=== PATIENT | male | born 1970 | race Caucasian/White ===

== ENCOUNTER 2018-10-05 14:54 | Inpatient (IN) | payer BC, OTHER ==
[~2018-10-05] VITALS: Ht 177.8 cm; Wt 97.5 kg
--- NOTE | ~2018-10-05 | HC ---
[facility] [place] [address] CONSULTATION Name: KEITH WESTON Room #: 215-P ADM IN M.R.#: [id number] Admission: 10/05/18 ������������������ Attend Phys: Jonathan Galarza MD Discharge: ������������������ Date of : 66 Report #: [id number] THIS REPORT FOR: //name// CC: Jonathan Clark REASON FOR CONSULTATION: Atrial fibrillation and shortness of breath. HISTORY OF PRESENT ILLNESS: The patient is a 48-year-old gentleman with a nonischemic cardiomyopathy, permanent atrial fibrillation, diabetes and COPD. He now presents with a 1- to 2-day history of nonproductive cough, orthopnea and increasing exertional breathlessness. He denies fevers or chills. Cough has been nonproductive. He does report that he "hears himself wheezing." No chest heaviness or pressure. When he originally presented with his cardiomyopathy, coronary angiography was undertaken and normal. He reports compliance with his medicines. CURRENT MEDICINES: Include apixaban 5 mg twice daily, diltiazem CD 180 mg daily, lisinopril 10 mg daily, torsemide 60 mg daily, potassium 20 mEq twice daily, glipizide 10 mg twice daily, Coreg 50 mg twice daily and trazodone. ALLERGIES: No known drug allergies. PAST MEDICAL HISTORY: His past history and medical records have been reviewed and include history of diabetes, COPD, permanent atrial fibrillation, and history of pulmonary embolism. 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 He is a 2-pack per day smoker for most of his adult life. FAMILY HISTORY: Unremarkable for premature coronary disease. REVIEW OF SYSTEMS: All systems negative except as that noted above. PHYSICAL EXAMINATION: GENERAL: This is a pleasant gentleman, who is mildly dyspneic. He has a prolonged expiratory phase. VITAL SIGNS: Blood pressure is 123/90, heart rate of 52 and irregular, he is afebrile, 5 feet 10 inches tall, 282 pounds. HEENT: There is neither xanthelasma, subcutaneous xanthomata, oral mucosal or digital cyanosis or kyphoscoliosis present. CHEST: Clear to auscultation and percussion. CARDIAC: An irregularly irregular rhythm with normal S1 and S2. ABDOMEN: Soft and nontender. EXTREMITIES: Without cyanosis, clubbing or edema. Radial pulses are 2+. NEUROLOGIC: He is alert with a nonfocal exam. [facility] [address] [place] [address] CONSULTATION Name: KEITH WESTON Room #: 215-P [facility] IN ..#: [id number] Admission: 10/05/18 ������������������ Attend Phys: Jonathan Galarza MD Discharge: ������������������ Date of : 66 Report #: [id number] LABORATORY DATA AND DIAGNOSTIC STUDIES: Sodium 138, potassium 3.2, creatinine 0.9. ProBNP of 992. Troponin of 0. White count 7.4, hemoglobin 15, hematocrit 47, platelet count 120. Chest x-ray demonstrates no acute process in the chest. CT scan of the chest demonstrates small nonocclusive pulmonary emboli. EKG, atrial fibrillation. IMPRESSION: 1. Atzrg-wl-swkxalm systolic heart failure; nonischemic cardiomyopathy, EF 35%. 2. Chronic obstructive pulmonary disease exacerbation; hypoxemic respiratory failure. 3. Permanent atrial fibrillation. 4. History of pulmonary embolism. 5. Hypertension. 6. Diabetes. 7. Presumed chronic obstructive pulmonary disease with a greater than 72-tkfq-czvv smoking history. 8. Hypercoagulable. RECOMMENDATIONS: 1. Resume rate controlling medicines. 2. Continued, probably lifelong anticoagulant therapy. 3. Diuresis. 4. Consider Pulmonary evaluation. ��������������������������������������������� ���������������������������������������� By: ��������������������������������������������� 0821 0837 Johnny Hansen MD, [facility] /nt
[~2018-10-05 14:54] MED LIST: ALDACTONE50 MG PO; AMIODARONE HCL400 MG PO; AMOX TR-K CLV1 EAC3 PO; APAP500 PO; AUGMENTIN 875875 MG PO; AZITHROMYCIN 2250 MG PO; BACTROBAN CREAM30 GM TOP; CARDIZEM CD 18180 M3 PO; CARVEDILOL25 MG PO; CHANTIX1 MG PO; CIPRO500 MG PO; CLOTRIMAZOLE 1%15 G1 TOP; COMBIVENT INH; DEMADEX 2020 MG/1 TA PO; DOXYCYCLINE 10100 MG PO; ELIQUIS5 MG PO; FLOMAX0.4 MG PO; FUROSEMIDE 80 M80 M1 PO; FUROSEMIDE20 MG/2 ML PO; GLIPIZIDE 5 MG T5 MG PO; GLUCOTROL5 MG PO; HYDROCODONE-APA1 TA1 PO; IBUPROFEN 200200 M1 PO; K-DUR 20 MEQ T20 MEQ PO; LANTUS100 UNIT/M SUBQ; LASIX 40 MG TAB40 M2 PO; LEVAQUIN 500 M500 M9 PO; LEVAQUIN 500 M500 MG PO; LEVEMIR SUBQ; LEVEMIR100 UNIT/1 SQ; LISINOPRIL10 MG PO; LISINOPRIL2.5 M1 PO; LO-DOSE ASPIRIN81 M1 PO; METFORMIN HCL500 MG PO; NICOTINE TRANSD14 M1 TOP; NICOTINE TRANSD21 M1; NOHOMEMEDICATIONS; NORCO 5-325 TA1 EACH PO; NORFLEX100 MG PO; NYAMYC15 GM TOP; OXYCODONE-ACET1 EACH PO; PERCOCET 10-321 EACH PO; PERCOCET 5-3251 EACH PO; PERCOCET PO; POTASSIUM20 PO; PRINIVIL20 MG PO; PROAIR HFA8.5 GM IH; PROMETHAZINE-C120 ML PO; TRAZODONE 150150 M1 PO; TYLENOL325 MG PO; VENTOLIN HFA 1818 GM INH; ZOFRAN ODT4 MG PO; ZPAK PO; ZYVOX600 MG PO
[2018-10-05 16:03] LABS: HEMATOCRIT 47.4 % (42.0-52.0); HEMOGLOBIN 16.1 gm/dL (14.0-18.0); MCH 27.1 pg (26.0-34.0); MCHC 33.9 g/dL (28.0-37.0); MCV 80.1 fL (80.0-100.0); PLATELET COUNT 139 thou/uL (150-400); RBC 5.92 mil/uL (4.50-6.00); RDW 14.4 % (10.5-14.5)
[2018-10-05 16:15] LABS: ANION GAP 7 mmol/L (7-16); BUN 26 mg/dL (7-18); CALCIUM 9.1 mg/dL (8.5-10.1); CHLORIDE 95 mmol/L (98-107); CO2 33 mmol/L (21-32); CREATININE 1.1 mg/dL (0.7-1.3); GLUCOSE 337 mg/dL (74-106); POTASSIUM 3.4 mmol/L (3.5-5.1); SODIUM 135 mmol/L (136-145)
[2018-10-05 16:19] VITALS: BP 138/73
[2018-10-05 16:24] LABS: TROPONIN-I <0.06 ng/mL (<0.06)
[2018-10-05 16:52] LABS: ABSOLUTE NEUTROPHILS 6.3 thou/uL (1.4-8.2); ANISOCYTOSIS 1+
[2018-10-05 17:38] LABS: BE(vivo) 3.7 mmol/L (-2 to +3); HCO3 28.2 mmol/L (22.0-26.0); PCO2 41.9 mmHg (35.0-45.0); pH 7.446 (7.360-7.450); sO2 88.8 % (92.0-98.0)
[2018-10-05 17:39] LABS: PO2 53.1 mmHg (80.0-100.0)
[2018-10-05 19:23] LABS: BE(vivo) 5.3 mmol/L (-2 to +3); PCO2 43.8 mmHg (35.0-45.0); pH 7.454 (7.360-7.450); sO2 87.6 % (92.0-98.0)
--- NOTE | 2018-10-05 19:24 | NUR ---
CRITICAL BLOOD GAS RECEIVED AT THIS TIME [PO2 50.9]. ERIKA CALLED AND INFORMED. ADVISED THAT PT WOULD NEED CLOSER INSTRUCTION TO REMAIN COMPLIANT WITH O2 NEEDED, UP TO AND INCLUDING PHYSICAL AND CHEMICAL RESTRAINTS NEEDED IF PT WERE TO REMAIN FULL CODE. ERIKA ADVISED THAT SITUATION ESCALATES WITH PT'S NON-COMPLIANCE TO OXYGEN, TO CALL BACK AND SHE WILL GIVE ORDERS NECESSARY. NC INCREASED TO 4LPM O2 AT THIS TIME
[2018-10-05 19:25] LABS: PO2 50.9 mmHg (80.0-100.0)
[2018-10-05] MEDS ORDERED: NORCO 7.5-3251 EACH PO (20:28)
[2018-10-06] VITALS: BP 100/77
[2018-10-06 00:30] VITALS: BP 115/65
[2018-10-06 03:25] VITALS: BP 136/74
--- NOTE | 2018-10-06 05:11 | NUR ---
PT ADMITTED TO ROOM 215 FROM ER, VSS O2 AT 2L/NC WITH SAT AT 93%, NPC, AFIB WITH LAT LOW 100'S TO 130'S-150'S WHEN PT UP COUGHING OR USING URINAL, VOIDING LRG AMOUNT OF DARK YELLOW URINE AFTER IV LASIX GIVEN IN ER, REFUSING SCD'S AFTER EDUCATION GIVEN, WILL CON'T TO MONITOR PER PPOC.
[2018-10-06 05:57] LABS: HEMATOCRIT 47.6 % (42.0-52.0); HEMOGLOBIN 15.9 gm/dL (14.0-18.0); MCH 26.9 pg (26.0-34.0); MCHC 33.3 g/dL (28.0-37.0); MCV 80.8 fL (80.0-100.0); RBC 5.89 mil/uL (4.50-6.00); RDW 14.4 % (10.5-14.5); WBC 7.4 thou/uL (4.0-11.0)
[2018-10-06 06:20] LABS: CALCIUM 8.6 mg/dL (8.5-10.1); CREATININE 0.9 mg/dL (0.7-1.3); POTASSIUM 3.2 mmol/L (3.5-5.1)
[2018-10-06 07:56] VITALS: BP 123/96
--- NOTE | 2018-10-06 09:18 | EKG ---
[address] [employer] [address] ELECTROCARDIOGRAM REPORT Name: KEITH WESTON Room #: 215-P ADM IN M.R.#: [id number] ������������������ Admission: 10/05/18 ������������������ Attend Phys: Jonathan Galarza MD Discharge: ������������������ Date of : 66 Report #: [id number] ����������������������������������������������������������������� [id number] THIS REPORT FOR: //name// [facility] ED Test Date: 2018-10-05 Test Time: 15:09:56 Pat Name: KEITH WESTON Department: Room: 215 Gender: M Manager Strategic Development: Wiley Garcia : 1970 Requested By: Blake Veloz Order Number: [id number] MD: Johnny Hansen Measurements Intervals [place] Rate: 120 P: [place]: QRS: -51 QRSD: 127 T: 99 QT: 326 QTc: 461 Interpretive Statements Atrial fibrillation Left bundle branch block Compared to ECG 11/18/2017 11:21:47 No significant changes Electronically Signed On 10-06-2018 9:18:18 CDT by Johnny Hansen [email or web address] ��������������������������������������������� <ELECTRONICALLY SIGNED> ���������������������������������������� By: Johnny Hansen MD, [facility] ��������������������������������������������� 10/06/1818 1509 1509 Johnny Hansen MD, FAC /EPI
--- NOTE | 2018-10-06 15:18 | 2DMMODE ---
[facility] [address] [address] 2 D/M-MODE ECHOCARDIOGRAM Name: KEITH WESTON Room #: 215-P ADM IN M.R.#: [id number] ������������� Admission: 10/05/18 ������������� Attend Phys: Jonathan Galarza MD Discharge: ��� ������������� ��� Date of : 66 Date of Service: 10/06/18 1518 �� Report #: [id number] �������� ��������������������������������������������[id number] THIS REPORT FOR: //name// APPROVED REPORT Study performed: 10/06/2018 12:57:13 EXAM: Comprehensive 2D, Doppler, and color-flow Echocardiogram Patient Location: Echo lab Room #: 215 Status: routine BSA: 2.16 HR: 101 bpm BP: 123/96 mmHg Rhythm: Atrial Fibrillation Other Information Study Quality: Good Indications Congestive Heart Failure COPD Diabetes Atrial Fibrillation Cardiomyopathy Hypertension/HDD Echo Enhancing Agent Indication: Endocardial border delineation Agent(s) / Amount(s) Used: Optison 6 cc Left Ventricle Left ventricle is dilated. There is severe global hypokinesis of the left ventricle. Mild to moderate concentric left ventricular hypertrophy. Left ventricular ejection fraction is severely decreased. LVEF is 25%. This study is not technically sufficient to allow evaluation of the LV diastolic function due to atrial fibrillation. Right Ventricle Right ventricle is dilated. Right ventricle is hypokinetic. Atria Left atrium is dilated. Right atrium is dilated. [facility] [address] [place] [address] 2 D/M-MODE ECHOCARDIOGRAM Name: KEITH WESTON Room #: 215-P ADM IN M.R.#: [id number] ������������� Admission: 10/05/18 ������������� Attend Phys: Jonathan Galarza MD Discharge: ��� ������������� ��� Date of : 66 Date of Service: 10/06/18 1518 �� Report #: [id number] �������� ��������������������������������������������[id number] Aortic Valve The aortic valve is normal in structure. No aortic regurgitation is present. There is no aortic valvular stenosis. Mitral Valve The mitral valve is normal in structure. Mild mitral regurgitation. No evidence of mitral valve stenosis. Tricuspid Valve The tricuspid valve is normal in structure. There is mild tricuspid regurgitation. Estimated PAP 40 mmHg. There is moderate pulmonary hypertension. Pulmonic Valve The pulmonary valve is normal in structure. There is no pulmonic valvular regurgitation. Great Vessels The aortic root is normal in size. The inferior vena cava is dilated with no inspiratory collapse. Pericardium There is no pericardial effusion. <Conclusion> Left ventricular ejection fraction is severely decreased. LVEF is 25%. There is severe global hypokinesis of the left ventricle. Both atria are dilated. The aortic valve is normal in structure. No aortic regurgitation or stenosis The mitral valve is normal in structure. Mild mitral regurgitation. There is mild tricuspid regurgitation. Estimated pulmonary artery pressure of 40 mmHg. There is no pericardial effusion. ��������������������������������������������� <ELECTRONICALLY SIGNED> ���������������������������������������� By: Johnny Hansen MD, [facility] ��������������������������������������������� 10/06/18 1518 1518 151 Johnny Hansen MD, [facility] /INF
[2018-10-06 15:20] VITALS: BP 110/62
[2018-10-06 19:56] VITALS: BP 79/47
[2018-10-07 04:32] VITALS: BP 94/75
[2018-10-07 05:22] LABS: CALCIUM 9.3 mg/dL (8.5-10.1)
[2018-10-07 05:23] LABS: POTASSIUM 4.2 mmol/L (3.5-5.1)
--- NOTE | 2018-10-07 06:52 | NUR ---
PATIENTS CARE WAS ASSUMED AT SHIFT CHANGE. PATIENT WAS ASSESSED AND MEDS WERE PASSED. PATIENT WAS UPSET ABOUT MEDICATION DUE AT MIDNIGHT. PATIENT WAS ABLE TO GO BACK TO SLEEP. HOURLY ROUNDING WAS DONE. BED IS IN A LOW AND LOCKED POSITION
[2018-10-07 07:31] VITALS: BP 112/75
[2018-10-07 11:53] VITALS: BP 88/63
[2018-10-07 15:43] VITALS: BP 98/73
[2018-10-07 16:24] VITALS: BP 133/74
--- NOTE | 2018-10-07 18:22 | NUR ---
ASSUMED CARE AT SHIFT CHANGE, ALERT AND ORIENTED X4. VSS AND AFEBRILE. BG REMAINS ELEVATED [phone], MEDICATED PRESCRIPED. PATIENT SPENT MOST OF THE DAY SLEEP. SLOWLY PROGRESSING TOWARDS GOALS AND WILL CONTINUE WITH POC.
[2018-10-07 19:49] VITALS: BP 96/62
[2018-10-08 03:33] LABS: HEMATOCRIT 46.7 % (42.0-52.0); HEMOGLOBIN 15.4 gm/dL (14.0-18.0); MCH 26.8 pg (26.0-34.0); MCHC 32.9 g/dL (28.0-37.0); MCV 81.4 fL (80.0-100.0); RBC 5.74 mil/uL (4.50-6.00); RDW 14.6 % (10.5-14.5); WBC 16.7 thou/uL (4.0-11.0)
[2018-10-08 03:43] LABS: CALCIUM 8.7 mg/dL (8.5-10.1)
--- NOTE | 2018-10-08 04:21 | NUR ---
RECEIVED PT'S CARE 1909; PT. ON BED; AOX4; NO NC ON; ST. "I DO NOT NEED IT"; VS O2 SAT 94%; DURING ASSESSMENT C/O HIP PAIN; PRN PAIN MEDICATION NOT DUE; ST. UNDERSTANDING; O2 SAT 92%; REFUSED 02; REFUSED SUCKS; REQUESTED PRN SLEEP MEDICATION AT 2100; EDUCATED ABOUT CALLING AT 2100 OR WHEN READY; ST. UNDERSTANDING; DURING ROUNDING PT. SLEEPING; AROUND 2300 SLEEP INTERRUPTED DUE TO SCHEDULE MEDICATION; REQUESTED PRN SLEEP MEDICATION; MEDICATION GIVEN; ABLE TO REST DURING THE NIGHT WITH EYES CLOSE; MONITORING; ASSESSMENT CHARGED; FOLLOWING POC; WILL PASS ON REPORT.
[2018-10-08 06:00] VITALS: BP 99/69
[2018-10-08 06:06] VITALS: BP 106/71
[2018-10-08 07:51] VITALS: BP 107/79
--- NOTE | 2018-10-08 07:55 | EKG ---
[address] [place] [address] ELECTROCARDIOGRAM REPORT Name: KEITH WESTON Room #: 215-P ADM IN M.R.#: [id number] ������������������ Admission: 10/05/18 ������������������ Attend Phys: Jonathan Galarza MD Discharge: ������������������ Date of : 66 Report #: [id number] ����������������������������������������������������������������� [id number] THIS REPORT FOR: //name// [facility] Test Date: 2018-10-07 Test Time: 07:37:04 Pat Name: KEITH WESTON Department: Room: 215 P Gender: M Anesthesiologist And Critical Care: ALLEN : 1970 Requested By: Johnny Hansen Order Number: [id number] MD: Johnny Hansen Measurements Intervals [place] Rate: 102 P: [place]: QRS: -39 QRSD: 122 T: 99 QT: 363 QTc: 473 Interpretive Statements Atrial fibrillation Left bundle branch block Compared to ECG 10/05/2018 15:09:56 No significant changes Electronically Signed On 10-08-2018 7:55:16 CDT by Johnny Hansen [email or web address] ��������������������������������������������� <ELECTRONICALLY SIGNED> ���������������������������������������� By: Johnny Hansen MD, [facility] ��������������������������������������������� 10/08/18 0755 D: [id number] Johnny Hansen MD, FACC /EPI
[2018-10-08] MEDS ORDERED: COREG25 MG PO (11:46)
[2018-10-08] MEDS ORDERED: TORSEMIDE20 MG PO (11:48)
[2018-10-08] MEDS ORDERED: PREDNISONE 10 M10 MG PO (11:49)
[2018-10-08 11:52] VITALS: BP 125/49
--- NOTE | 2018-10-08 15:58 | NUR ---
ASSUMED CARE AT SHIFT CHANGE, ALERT AND ORIENTED X4. AFIB ON THE MONITOR AND VSS. DISCHARGE AND MEDICATION INSTRUCTIONS GIVEN TO PATIENT. S/B DR SCHAEFFER, APPIONTMENT INFORMAIOTN AND MEDICATION SAMPLES GIVEN. PATIENT ANY CP OR DISCOMFORT.
[2018-10-08 16:46] VITALS: BP 118/73
[2018-10-08 17:26] VITALS: BP 118/73
== END 2018-10-08 17:44 | disposition home or self-care (01) | DRG 291 ==
LOC: ER 14:54 → EROBS 17:33 → 2N 17:33
PROVIDERS: Emergency Medicine; Internal Medicine; ADMIT Hospitalist
DX: I11.0 Hypertensive heart disease with heart failure (principal); I26.99 Other pulmonary embolism without acute cor pulmonale; J96.01 Acute respiratory failure with hypoxia; J44.1 Chronic obstructive pulmonary disease with (acute) exacerbation; D68.59 Other primary thrombophilia; I50.23 Acute on chronic systolic (congestive) heart failure; I42.8 Other cardiomyopathies; G47.33 Obstructive sleep apnea (adult) (pediatric); E66.01 Morbid (severe) obesity due to excess calories; I48.2 Chronic atrial fibrillation; E78.5 Hyperlipidemia, unspecified; E11.9 Type 2 diabetes mellitus without complications; F17.210 Nicotine dependence, cigarettes, uncomplicated; Z79.01 Long term (current) use of anticoagulants; Z79.4 Long term (current) use of insulin; Z79.899 Other long term (current) drug therapy; Z68.30 Body mass index [BMI] 30.0-30.9, adult; Z83.3 Family history of diabetes mellitus; Z80.9 Family history of malignant neoplasm, unspecified
CPT/HCPCS: 10081

== ENCOUNTER 2019-02-02 18:17 | Inpatient (IN) | payer OTHER ==
[~2019-02-02] VITALS: Ht 177.8 cm; Wt 127.5 kg
[~2019-02-02 18:17] MED LIST changes: +COREG25 MG PO; +NORCO 7.5-3251 EACH PO; +PREDNISONE 10 M10 MG PO; +TORSEMIDE20 MG PO
[2019-02-02 18:46] LABS: ABSOLUTE NEUTROPHILS 9.8 thou/uL (1.4-8.2); BASOPHILS 0.5 % (0.0-2.0); EOSINOPHILS 0.9 % (0.0-3.0); HEMATOCRIT 50.2 % (42.0-52.0); HEMOGLOBIN 16.1 gm/dL (14.0-18.0); LYMPHOCYTES 15.4 % (24.0-44.0); MCH 26.7 pg (26.0-34.0); MCV 83.4 fL (80.0-100.0); MONOCYTES 8.6 % (1.0-8.0); PLATELET COUNT 235 thou/uL (150-400); POLYS 74.6 % (36.0-66.0); RBC 6.02 mil/uL (4.50-6.00); WBC 13.1 thou/uL (4.0-11.0)
[2019-02-02 18:54] LABS: ANION GAP 9 mmol/L (7-16); BUN 31 mg/dL (7-18); CALCIUM 9.8 mg/dL (8.5-10.1); CHLORIDE 84 mmol/L (98-107); CO2 29 mmol/L (21-32); CREATININE 1.4 mg/dL (0.7-1.3); POTASSIUM 4.1 mmol/L (3.5-5.1); SODIUM 122 mmol/L (136-145)
[2019-02-02 18:59] LABS: APTT 25.7 Seconds (24.5-32.8); INR 1.1; PROTIME 11.7 Seconds (9.3-11.4)
[2019-02-02 19:00] LABS: TROPONIN-I <0.06 ng/mL (<0.06)
[2019-02-02 19:08] LABS: GLUCOSE 854 mg/dL (74-106)
[2019-02-03] VITALS (8 sets, daily range): BP systolic 103–135; BP diastolic 53–74
[2019-02-03 00:09] LABS: CHOLESTEROL 168 mg/dL (<200); HDL CHOLESTEROL 18 mg/dL (>40); LDL CHOLESTEROL 96 mg/dL (<100); TC:HDL 9.3 Ratio (Not establshd); TRIGLYCERIDE 272 mg/dL (<150); VLDL 54 mg/dL (<40)
[2019-02-03 00:21] LABS: SERUM ASSESSMENT Clear
[2019-02-03 05:36] LABS: HEMATOCRIT 49.7 % (42.0-52.0); MCH 26.2 pg (26.0-34.0); MCHC 32.1 g/dL (28.0-37.0); MCV 81.5 fL (80.0-100.0); RBC 6.09 mil/uL (4.50-6.00); RDW 15.1 % (10.5-14.5); WBC 14.6 thou/uL (4.0-11.0)
[2019-02-03 05:48] LABS: CALCIUM 9.2 mg/dL (8.5-10.1); CREATININE 1.1 mg/dL (0.7-1.3); POTASSIUM 3.7 mmol/L (3.5-5.1)
[2019-02-03 05:50] LABS: CALCIUM 9.1 mg/dL (8.5-10.1); CREATININE 1.1 mg/dL (0.7-1.3); MAGNESIUM 2.3 mg/dL (1.8-2.4); POTASSIUM 3.9 mmol/L (3.5-5.1)
--- NOTE | 2019-02-03 08:10 | NUR ---
ASSESSMENTS CHARTED, MEDS GIVEN CHARTED. PATIENT ARRIVED FROM ED AROUND 1:14 IN AM WITH SHORTNESS OF BREATH, AFIB ON CARIZEM DRIP AND ELEVATED GLUCOSE ON INSULIN DRIP. PATIENT ANXIOUS, ADMITTED IN COMPUTER. PATIENT STATES HE DOES NOT GO TO MANY DOCTORS APPOINTMENTS BECAUSE HE CANT MISS WORK. HAS AN EF OF 20% SINCE 2013 BUT NEVER WENT TO THE DOCTORS APPOINTMENT TO GET A PACEMAKER. NEVER CHECKS HIS BLOOD SUGAR, JUST TAKES A SET DOSE OF INSULIN PER DAY. IS A 2 PPD SMOKER WHO REFUSES TO QUIT, REFUSES BREATHING TREATMENTS, BLAMES SINUS INFECTIONS ON BREATHING TREATMENTS. 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 PATIENT NOT READY TO LEARN.
--- NOTE | 2019-02-03 08:20 | NUR ---
PT REFUSES ALL FALL RISK INTERVENTION.
--- NOTE | 2019-02-03 10:31 | NUR ---
SPOKE WITH DR. KOHLER AND INSTRUCTED TO DISCONTINUE INSULIN GTT AND HE WILL RESUME PT'S HOME MEDS.
--- NOTE | 2019-02-03 13:53 | EKG ---
[address] [email or web address] [address] ELECTROCARDIOGRAM REPORT Name: MARYMARKKEITH Room #: 359-P ADM IN M.R.#: [id number] Admission: 02/02/19 Attend Phys: Temo Dickson Discharge: Date of : 66 Report #: [id number] THIS REPORT FOR: //name// [facility] ED Test Date: 2019-02-02 Test Time: 18:30:13 Pat Name: KEITH WESTON Department: Room: 359 Gender: M Director Data Analytics: JNGUM : 1970 Requested By: Thierry Blancas Order Number: [id number] MD: Vinayak Tinajero Measurements Intervals [place] Rate: 116 P: MD: QRS: -58 QRSD: 123 T: 87 QT: 339 QTc: 471 Interpretive Statements Atrial fibrillation Left bundle branch block Compared to ECG 10/07/2018 07:37:04 No significant changes Electronically Signed On 02-03-2019 13:53:45 CDT by Vinayak Tinajero [email or web address] <ELECTRONICALLY SIGNED> By: Vinayak Tinajero MD 02/03/19 1353 29 29 Vinayak Tinajero MD /[facility]
--- NOTE | 2019-02-03 14:41 | NUR ---
FAXED FACE SHEET TO [facility] TO HELP WITH MEDICAID APPLICATION RECEIVED CONFIRAMATION.
[2019-02-04 00:07] LABS: GLYCOHEMOGLOBIN (HGB A1C) 12.9 % (4.8-5.6)
[2019-02-04 04:00] VITALS: BP 121/84
--- NOTE | 2019-02-04 04:07 | NUR ---
PATIENT IS ALERT AND ORIENTED PATIENT IS UP AD HUNTER DUE TO REFUSEING ALARMS. PATIENT IS ON ROOM AIR. PATIENTS BLOOD GLUCOSE IN ELEVATED FOLLOWING ORDERS FROM [facility] CANDELARIA. JEREMY KNOWS TO CALL WITH ANY SIGNS OF HYPOGLYCEMIA. PATIENT HAS HX OF MRSA 3-4 YEARS AGO. PATIENT HAS NOT HAD ANY SNACKS THIS SHIFT. PATIENT IS A FIB ON TELE. PATIENT IS RESTING COMFORTABLY IN BED. WCM. PATIENT IS NOT PROGRESSING TO GOALS.
[2019-02-04 06:08] LABS: CALCIUM 8.8 mg/dL (8.5-10.1); CREATININE 0.8 mg/dL (0.7-1.3); POTASSIUM 4.2 mmol/L (3.5-5.1)
[2019-02-04 07:32] VITALS: BP 120/65
[2019-02-04 11:32] VITALS: BP 114/65
--- NOTE | 2019-02-04 13:37 | NUR ---
Assess due to pt with uncontrolled diabetes, RD consult received. Hx DM, CHF, obesity, copd. Admit with SOB, afib, and chronic sinus infection. BG 300-500 with A1C of 12.9. Triglycerides elevated at 272. Class III obesity, BMI 40.3. Wt loss nearly 40 lb from usual if current wt 281 lb is correct. Pt states not really trying to lose wt. Has symptoms of increased thirst, dry mouth and frequent urination. Denies poor compliance with diet but also would not give much detailed information on what he is eating or portions despite frequent prompting. Denied need for nutrition information, states "I have all that all home" Was not aware of medication for treatment of high triglycerides. Did listen to general information and suggestions and RD provided option for outpatient dietitian services if pt desires. Insulin being adjusted by physician for improved BG control. Low nutrition risk
--- NOTE | 2019-02-04 13:44 | NUR ---
INITIAL ASSESSMENT: OBEY reviewed chart and spoke with nursing and attending physician. Pt was admitted from home due to hyperglycemia. Pt listed as patient pay and face sheet was faxed to [facility] yesterday by funeral planner. Discharge home is anticipated for tomorrow. OBEY met with pt at bedside. Introduced role of SW. Pt is alert/orientated x 4. Pt reports he lives at home with his . Prior to admission, pt was independent with ADLs. No use of DME. No hx of services or SNF/Rehab placement. Pt's PCP is Dr. Clark. Pt needs an outpatient sleep study and cardiology workup for a pacemaker. Pt states he will coordinate appointments after he is discharged. Pt states his insurance termed on 12/13. Pt is unsure if his insurance has an option for [employer] benefits. OBEY is following to assist as needed with discharge planning.
[2019-02-04 14:45] VITALS: BP 100/72
--- NOTE | 2019-02-04 18:46 | NUR ---
ASSUMED CARE OF PATIENT AT 0700. PATIENT VSS WITH CLIMBING BLOOD SUGARS. NURSE HAS INCREASED SLIDING SCALE FROM LOW TO MODERATE DURING SHIFT. PATIENT ALERT AND ORIENTED X4. VSS. UP AD HUNTER.
[2019-02-04 19:40] VITALS: BP 105/66
[2019-02-05] MEDS ORDERED: GLUCOPHAGE500 MG PO (01:37)
[2019-02-05 04:10] VITALS: BP 103/63
--- NOTE | 2019-02-05 06:22 | NUR ---
ASSUMED CARE AT 1900. START OF SHIFT PT HAD "HIGH" GLUCOSE READING, OBTAINED STAT LAB CHECK WITH RESULT OF 474; SPOKE WITH BAIL BONDSMAN LEWIS, GAVE 23 UNITS LISPRO PER SLIDING SCALE AND 40 UNITS SCHEDULE LANTUS AT 1999, WITH A RECHECK AT 2200. 0 RESULT WAS 384, ORDERED TO GIVE ANOTHER 23 UNITS LISPRO AND RECHECK AT MIDNIGHT. MIDNIGHT BS WAS 350, NO NEW INSULIN ORDERED, BUT CHECK AT 0400; BS WAS 322, GAVE ANOTHER 20 UNITS PER SLIDING SCALE WITH RECHECK ORDERED FOR 0700. PT DENIES PAIN OR NAUSEA. DENIES SOB, BUT C/O HEAVY SINUS DRAINAGE AND CONGESTION; PT ASKED WHETHER A CT HAD BEEN ORDERED; PER DR. ENG'S NOTE, PT COULD HAVE A CT OUT-PATIENT OR IN-PATIENT IF HE IS REMAINING IN THE HOSPITAL. HAS BEEN IN AFIB WITH HR 80-90'S. IV ABX GIVEN OVERNIGHT. NO OTHER CONCERNS, WILL CONTINUE TO MONITOR.
[2019-02-05 07:26] VITALS: BP 145/108
[2019-02-05] MEDS ORDERED: HUMALOG100 UNIT/1 SUBQ (09:47)
[2019-02-05] MEDS ORDERED: LANTUS SUBQ (09:47)
[2019-02-05] MEDS ORDERED: BACTRIM DS TAB1 EAC1 PO (09:48)
[2019-02-05 10:59] VITALS: BP 116/94
[2019-02-05 13:41] VITALS: BP 116/94
--- NOTE | 2019-02-05 15:08 | NUR ---
SPOKE WITH PT REGARDING DIABETIC MANAGEMENT, STATES HE IS NOT TESTING AT ALL AT HOME BUT HE DOES HAVE A METER. INSTRUCTED TO TALK TO DR. SINGLETON ABOUT HOW OFTEN HE SHOULD TEST. PT VERBALIZED UNDERSTANDING.
--- NOTE | 2019-02-05 15:59 | NUR ---
DISCHARGE NOTE: SW reviewed chart and spoke with nursing and attending physician. Pt is medically stable for discharge home today. Pt was discharged prior to SW visit. [employer] screened pt for Medicaid/financial assistance. Case closed.
--- NOTE | 2019-02-13 08:42 | HC ---
[facility] [place] [address] CONSULTATION Name: JOSEKEITH AGUILLON Room #: 359-P [facility] IN M.R.#: [id number] Admission: 02/02/19 Attend Phys: Temo Dickson Discharge: 02/05/19 Date of : 66 Report #: [id number] THIS REPORT FOR: //name// CC: Temo Clark DATE OF SERVICE: 02/03/2019 REASON FOR CONSULTATION: Sinusitis. HISTORY OF PRESENT ILLNESS: The patient is a 48-year-old gentleman, well known to us from previous evaluation in the office clinic setting. He was originally seen on 12/23/2018, at which time he reported a 2-month history of nasal congestion, green yellowish nasal drainage, sour taste in the mouth, postnasal discharge and a cough since he had been hospitalized for CHF. Treatment at that time had been 10 days of cefdinir over 6 weeks ago. Examination at that time demonstrated a more significant right than left nasal purulence and inflammation. At that time, I had recommended he start a regimen of 3 weeks of cefdinir along with some nasal hygiene. He returned on 01/28/2019 and had noted that he continued to have the same sensation despite 3 weeks of therapy. However, it should be noted that it was 01/28/2019 visit, he had significant dyspnea in the examination room and I started him on oral antibiotics and steroids, but sent over to see Dr. Clark at that time. He was hospitalized on Saturday from the Emergency Room with increasing heart rate/rapid ventricular response and dyspnea along with a history of hemoptysis on Saturday and Saturday of this last week. Today, the patient reports no hemoptysis. He denies any dyspnea. He continues to note some generalized nasal congestion and sinus congestion and pressure. 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 MEDICATIONS: Noted on the hospitalization chart. PAST MEDICAL AND SURGICAL HISTORY: Extensive for COPD, diabetes, congestive heart failure, essential hypertension. PHYSICAL EXAMINATION: He was examined in hospital bed. He was relaxed, conversant, did not appear in any distress. Inspection of the oral cavity and oropharynx revealed no abnormalities. There was no evidence of any posterior nasal rhinorrhea. Internal nares examination reveals no evidence of any inflammation on the left nasal passageway. There is moderate yellowish green crusting within the right nasal passageway. No obvious purulence was draining out of the middle meatus, however. Examination of the ears and palpation of the neck was otherwise unremarkable. ASSESSMENT: History of probable chronic rhinosinusitis. RECOMMENDATIONS: [address] [address] CONSULTATION Name: KEITH WESTON Room #: 359-P [facility] IN M.R.#: [id number] Admission: 02/02/19 Attend Phys: Temo Dickson Discharge: 02/05/19 Date of : 66 Report #: [id number] 1. After discussing his care with Dr. Clark as most likely he will be discharged in the next 24 hours. I would recommend he finish his oral antibiotic therapy and we will obtain an outpatient CT scan of his sinuses this following week of 02/09/2019. However, the patient is going to be hospitalized for an extended period of time, we can go ahead and obtain a CT scan as an inpatient at this same time frame. Thank you for allowing us to participate in his care. <ELECTRONICALLY SIGNED> By: Kishan Alfredo MD 02/13/19 0842 1324 1445 Kishan Alfredo MD /nt
== END 2019-02-05 14:08 | disposition home or self-care (01) | DRG 309 ==
LOC: ER 18:17 → 3W 20:53 → EROBS 20:53 → 3W 02-03 01:22 → ENTRNSPT 02-05 13:50 → EDTRNSPTSTS 02-05 14:03 → 3W 02-05 14:08
PROVIDERS: Emergency Medicine; Nurse Practitioner Acute Care; ADMIT Hospitalist
DX: I48.91 Unspecified atrial fibrillation (principal); R04.2 Hemoptysis; N17.9 Acute kidney failure, unspecified; E87.1 Hypo-osmolality and hyponatremia; J96.10 Chronic respiratory failure, unspecified whether with hypoxia or hypercapnia; I50.22 Chronic systolic (congestive) heart failure; I42.9 Cardiomyopathy, unspecified; Z91.19 Patient's noncompliance with other medical treatment and regimen; I11.0 Hypertensive heart disease with heart failure; J44.9 Chronic obstructive pulmonary disease, unspecified; J32.9 Chronic sinusitis, unspecified; E11.65 Type 2 diabetes mellitus with hyperglycemia; Z86.711 Personal history of pulmonary embolism; Z79.899 Other long term (current) drug therapy
CPT/HCPCS: 10879

== ENCOUNTER 2019-02-17 13:19 | Inpatient (IN) | payer BC, OTHER ==
[~2019-02-17] VITALS: Ht 177.8 cm; Wt 138.0 kg
[~2019-02-17 13:19] MED LIST changes: +BACTRIM DS TAB1 EAC1 PO; +GLUCOPHAGE500 MG PO; +HUMALOG100 UNIT/1 SUBQ; +LANTUS SUBQ
[2019-02-17 13:52] VITALS: BP 107/78
[2019-02-17 14:40] LABS: ABSOLUTE NEUTROPHILS 7.4 thou/uL (1.4-8.2); EOSINOPHILS 1.6 % (0.0-3.0); HEMATOCRIT 45.1 % (42.0-52.0); HEMOGLOBIN 14.6 gm/dL (14.0-18.0); LYMPHOCYTES 23.2 % (24.0-44.0); MCH 26.6 pg (26.0-34.0); MCHC 32.3 g/dL (28.0-37.0); MCV 82.3 fL (80.0-100.0); MONOCYTES 6.1 % (1.0-8.0); PLATELET COUNT 130 thou/uL (150-400); POLYS 68.1 % (36.0-66.0); RBC 5.48 mil/uL (4.50-6.00); RDW 15.7 % (10.5-14.5); WBC 10.8 thou/uL (4.0-11.0)
[2019-02-17 14:46] LABS: CALCIUM 9.7 mg/dL (8.5-10.1); CREATININE 0.6 mg/dL (0.7-1.3); MAGNESIUM 1.7 mg/dL (1.8-2.4); POTASSIUM 3.9 mmol/L (3.5-5.1)
--- NOTE | 2019-02-17 16:55 | NUR ---
PATIENT ARRIVED FROM DR CROOK OFFICE AT 1500, ALERT AND ORIENTED X4. ADMISSION COMPLETED. NEW POC ESTABBLISHED, AND WILL CONTIUE TO MONITOR PATIENT.
--- NOTE | 2019-02-17 17:09 | EKG ---
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 : 1970 Requested By: Zelda Rodrigues Order Number: [id number] MD: Johnny Hansne Measurements Intervals [place] Rate: 114 P: [place]: QRS: -39 QRSD: 118 T: 111 QT: 348 QTc: 480 Interpretive Statements Atrial fibrillation Nonspecific IVCD with LAD Low voltage, extremity leads Poor R wave progression Compared to ECG 02/02/2019 18:30:13 No significant change was found Electronically Signed On 02-17-2019 17:09:30 BOXER OPERATOR by Johnny Hansen [email or web address] <ELECTRONICALLY SIGNED> By: Johnny Hansen MD, [facility] 02/17/19 1709 1423 142 Johnny Hansen MD, [facility] /EPI
[2019-02-17 17:21] VITALS: BP 114/75
[2019-02-17 20:37] VITALS: BP 130/90
[2019-02-18 00:24] VITALS: BP 148/82
--- NOTE | 2019-02-18 05:11 | NUR ---
ASSUMED OT CARE AT 1900. VSS. PT A&0X4. PT STILL IN AFIB AND TACHY WITH ACTIVITY IN THE 130S, BUT IN 110s WITH SLEEP. PT SLEPT WELL ALL NIGHT, COMPLAINED OF TOOTH PAIN, TYLENOL GIVEN. PT IS STABLE, WILL CONTINUE TO MONITORPER POC
[2019-02-18 05:16] VITALS: BP 133/75
[2019-02-18 07:10] VITALS: BP 108/75
--- NOTE | 2019-02-18 08:15 | HC ---
[facility] [place] [address] CONSULTATION Name: KEITH WESTON Room #: 218-P ADM IN M.R.#: [id number] Admission: 02/17/19 Attend Phys: Kain Reyes MD Discharge: Date of : 66 Report #: [id number] THIS REPORT FOR: //name// CC: Kain Clark DATE OF SERVICE: 02/17/2019 ENDOCRINE CONSULTATION NOTE CONSULTING PHYSICIAN: Kain Reyes MD REASON FOR CONSULTATION: Uncontrolled type 2 diabetes mellitus. HISTORY OF PRESENT ILLNESS: This is a 48-year-old male patient whose medical background is significant for uncontrolled type 2 diabetes mellitus as per his report as well as progressive issues with congestive heart failure, atrial fibrillation, hyperlipidemia and hypertension. The patient was admitted earlier today following difficulties with progressive shortness of breath, dyspnea on exertion, and orthopnea as well as significant fluid retention with a weight gain of 30 pounds, mostly in his abdomen. The patient was then admitted under the provisional diagnosis of congestive heart failure for further monitoring and management. The patient has a known history of type 2 diabetes mellitus, which he dates back to several years ago, and notes that he was most recently maintained on a regimen of Levemir insulin 70 units q.p.m., metformin 1000 mg b.i.d., glipizide 10 mg b.i.d. The patient acknowledges that he does not check his blood glucose values, whatsoever, out of frustration with the fact that he is not sure what to look for or how to act on such values. He notes that his blood glucose values have risen considerably over the past few weeks due to the active use of glucocorticoids and that he was recently given a prescription for a fast-acting insulin due to that reason, but that he has not actually started using it yet. The patient does not believe he suffers hypoglycemia based on symptoms, is not aware of difficulties pertaining to diabetic retinopathy, diabetic nephropathy, coronary artery disease, or CVA. The patient notes that he has hypertension. He was not sure if he did or did not have hyperlipidemia. REVIEW OF SYSTEMS: CONSTITUTIONAL: Fatigue, tiredness, significant quick weight gain of 20 pounds over the past few days due to fluid retention. HEENT: Negative for sore throat, active sinus pain, ear drainage. PULMONARY: Shortness of breath, cough, but no hemoptysis. CARDIAC: Progressive abdominal distention, leg edema, fluid weight gain. No chest pain, dyspnea on exertion or orthopnea. [address] [address] CONSULTATION Name: KEITH WESTON Room #: 218-P [facility] IN ..#: [id number] Admission: 02/17/19 Attend Phys: Kain Reyes MD Discharge: Date of : 66 Report #: [id number] GASTROINTESTINAL: Abdominal distention, abdominal discomfort, nausea, but no vomiting. NEUROLOGY: Lightheadedness, dizziness, but no loss of consciousness, seizures or severe frequent headaches. PSYCHIATRIC: No hallucinations or delusions. SKIN: No rash, ulceration, or other major abnormalities. Otherwise, his review of systems is noncontributory other than that was mentioned in HPI. PAST MEDICAL HISTORY: 1. Type 2 diabetes mellitus. 2. Atrial fibrillation. 3. Congestive heart failure with cardiomyopathy and a documented ejection fraction of 20%. 4. Hypertension. 5. Bronchitis. 6. Obesity. 7. History of pulmonary embolism. 8. History of pyelonephritis. 9. History of UTIs. ACTIVE OUTPATIENT MEDICATIONS: Include Eliquis 5 mg b.i.d., diltiazem 180 daily, lisinopril 10 mg daily, KCl 20 mEq b.i.d., glipizide 10 mg b.i.d., Levemir insulin 70 units q.p.m., Humalog insulin was supposed to be used at 6 units t.i.d., but the patient has not practically started using that yet. Coreg 50 mg b.i.d. and torsemide. ALLERGIES: No known drug allergies. FAMILY HISTORY: Noncontributory. SOCIAL HISTORY: The patient is , has 3 daughters. Smokes 1-2 packs per day. 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 Denies active use of alcohol or illicit drugs. PHYSICAL EXAMINATION: GENERAL: Pleasant male patient who is not in apparent pain or distress. VITAL SIGNS: Blood pressure is 107/78 mmHg, heart rate is 114 per minute, respirations 18 per minute, temperature is 37.2 degrees. CONSTITUTIONAL: The patient is sitting up in his chair, appears comfortable, not in apparent distress. HEENT: Anicteric sclerae. Intact extraocular motions. NECK: Supple, with JVD, no carotid bruits. No thyromegaly. CHEST: Noted for distant breath sounds, bibasilar crackles and, scattered rhonchi. [facility] [address] [place] [address] CONSULTATION Name: KEITH WESTON Room #: 218-P ADM IN Mert#: [id number] Admission: 02/17/19 Attend Phys: Kain Reyes MD Discharge: Date of : 66 Report #: [id number] HEART: Regular rate and rhythm without murmurs or gallops. ABDOMEN: Distended, tense, obese, but nontender, no guarding. No appreciated organomegaly. EXTREMITIES: Lower extremity exam is noted for pitting edema. Stasis dermatitis. No skin breaks, ulcerations or other deformities. NEUROLOGIC: Awake, alert and oriented to time, place and person. The remainder of his examination is largely nonfocal. PSYCHIATRIC: Pleasant, awake, alert, oriented, interactive. Normal mood and affect. LABORATORY RESULTS: Blood glucose arrival was 202 mg/dL. Other laboratories included sodium 138, potassium 3.9, chloride 102, CO2 of 30, anion gap 6, BUN 19, creatinine 0.6, glucose 216, total bilirubin 0.5, direct bilirubin 0.1, calcium 9.7, phosphorus 3.2, magnesium 1.7, albumin 3.5, EGFR 143. Troponin negative. Total cholesterol 168, triglycerides 272, HDL 18, LDL 96. BNP 1089. White blood count 10.8, hemoglobin 14.6, hematocrit 45.1, platelets 130. TSH 1.9, that was in 2016. Hemoglobin A1c on 02/02/2019 was 12.9, in 2016 it was 11. In 2016, another value was at 12.1. ASSESSMENT AND PLAN: 1. Type 2 diabetes mellitus judging by the patient's reported hemoglobin A1c as well as those found in his electronic medical record, the patient has had longstanding severe hyperglycemia. Unfortunately, he has gone into the practice where he does not at all monitor his low glucose at home. I counseled the patient extensively about the pathogenesis of type 2 diabetes mellitus, its complications and the need to achieve and maintain adequate glycemic control so as to prevent these complications. I focused on the high value of ample blood glucose data to drive meaningful and guided therapeutic changes, which he seemed to comprehend well. We actually discussed the desired blood glucose targets and how to utilize those towards better overall control. The patient has been written for low-dose Humalog supplemental scale, which I will upgrade to moderate. I will also reinstate treatment with long-acting insulin coverage and Lantus dose of 40 units q.p.m. and assign meal coverage with 12 units t.i.d. a.c. of Humalog. While I generally like to utilize metformin towards sensitizing the patient to the activity of insulin, I feel hesitant at this point in time to do so due to the active issues with congestive heart failure and the concern over the possibility of tissue under perfusion. Eventually, I would rather do so when the patient is more clinically stable and is about to be discharged home, a consideration of adding an SGLT2 inhibitor would be rather reasonable as it might prove useful to both the issue of type 2 diabetes mellitus and heart failure altogether. I will hold off on glipizide at this point in time, and I believe that the patient will probably benefit to stop it long-term as well as I do not believe it has been of therapeutic value lately. Blood glucose monitoring will continue before meals and at bedtime to better assess his response to these steps and adjust his regimen as needed. [address] [address] CONSULTATION Name: KEITH WESTON Room #: 218-P ADM IN M.R.#: [id number] Admission: 02/17/19 Attend Phys: Kain Reyes MD Discharge: Date of : 66 Report #: [id number] 2. Hypertension. The patient's level of blood pressure control is adequate for starters. This aspect will be deferred to Hospital Medicine. 3. Congestive heart failure. The patient has a longstanding history of heart failure and nonischemic cardiomyopathy with a fairly limited ejection fraction. I will defer to Hospital Medicine on this issue as well as to the pending evaluation of the Cardiology team. 4. Hyperlipidemia. While the patient does not claim hyperlipidemia is an issue, his lipid profile noting a triglycerides of 272, HDL of 18 and LDL of 96 certainly would warrant the use of a statin to help pursue a better non-HDL/HDL cholesterol ratio. I would be in favor of starting a low-dose atorvastatin therapy at 20 mg daily. I certainly appreciate this consultation by Dr. Reyes. <ELECTRONICALLY SIGNED> By: Gem Arellano MD 02/18/19 0815 [id number] [id number] Gem Arellano MD /nt
[2019-02-18 08:49] LABS: URINE BILIRUBIN NEGATIVE (Negative); URINE BLOOD NEGATIVE (Negative); URINE CLARITY CLEAR; URINE COLOR YELLOW; URINE GLUCOSE-RANDOM* NEGATIVE (Negative); URINE KETONES NEGATIVE (Negative); URINE LEUKOCYTES-REFLEX NEGATIVE (Negative); URINE NITRITE-REFLEX NEGATIVE (Negative); URINE PROTEIN (DIPSTICK) NEGATIVE (Negative); URINE UROBILINOGEN 0.2 E.U./dl (0.2-1.0)
--- NOTE | 2019-02-18 10:48 | NUR ---
Assess due to RD consult received for diet education. Pt recently seen by this RD last month admission. At that time, refused diet education and again has done so this visit. States not eating any high Na foods at home, and continues to use tobacco, and noncompliant with blood glucose monitoring. Endocronologist following. Wt is up a reported 30 lb from fluid overload. Adding carb control to diet order. Low nutrition risk
[2019-02-18 11:53] VITALS: BP 100/67
--- NOTE | 2019-02-18 13:10 | NUR ---
ORDERS RECEIVED FOR EVAL AND TREAT. PER NURSING, Pt IS UP AD HUNTER. SPOKE WITH Pt WHO STATES HE IS HAVING NO DIFFICULTY WITH HIS MOBILITY AND HAS BEEN UP ON HIS OWN. Pt DECLINING FORMAL P.T. EVAL
--- NOTE | 2019-02-18 13:52 | NUR ---
PER DISCUSSION WITH RN, PATIENT IS UP AD HUNTER WITH NO CONCERNS. VISITED WITH PATIENT WHO WAS ATTEMPTING TO REST AT THIS TIME. PATIENT REPORTED NO CONCERNS RELATED TO ADLS OR FUNCTIONAL MOBILITY. PATIENT REFUSING FORMAL OT EVALUATION AND INTERVENTION. OCCUPATIONAL THERAPY SERVICES WILL BE DISCONTINUED AT THIS TIME. PLEASE RE-CONSULT IF PATIENT HAS A DECLINE IN FUNCTIONAL STATUS.
--- NOTE | 2019-02-18 15:33 | NUR ---
Case reviewed and medical writer visited with the pt at bedside. Pt is a&ox4 and up ad luisa in his room. He is sob with conversation. He indicates that he is working fulltime and has active insurance again through his employer. His pcp is Dr. Clark. He denies any dc needs or concerns. He is worried about getting a CT of his sinuses as he has been seeing an ENT as an outpt. He reports his sinus issues have been a barrier to getting his heart issues addressed. CM role reveiwed. He states he can [facility] at [facility].
--- NOTE | 2019-02-18 15:39 | NUR ---
ASSUMED CARE AT SHIFT CHANGE, ALERT AND ORIENTED X4. AFIB ON THE MONITOR AND OTHER VSS AND AFEBRILE. PATIENT HAS A SMALL BLISTER ON THE RT LEG THAT'S OOZING CLEAR, PROGRESSING TOWARDS GOALS AND WILL CONTINUE WITH POC.
[2019-02-18 19:28] VITALS: BP 100/55
--- NOTE | 2019-02-19 04:21 | NUR ---
ASSESSMENT DOCUMENTED.PT BEEN RESTING IN NO ACUTE DISTRESS.PT SLEEPING IN THE CHAIR AND AT TIMES IN THE BED.RA W/O C/O DYSPNEA,SATS ADEQUATE.VSS,POC IS TO CONTINUE TO DIURESE WITH LASIX.PT VOIDING IN THE BR,REFUSES TO URINATE IN URINAL TO KEEP ACCURATE I&O.WILL CONT TO MONITOR PER POC.
[2019-02-19 04:36] VITALS: BP 101/76
[2019-02-19 08:30] VITALS: BP 112/74
[2019-02-19 11:19] LABS: ALBUMIN 2.8 g/dL (3.4-5.0); ANION GAP < 0 mmol/L (7-16); BUN 16 mg/dL (7-18); CHLORIDE 97 mmol/L (98-107); CO2 35 mmol/L (21-32); CREATININE 0.8 mg/dL (0.7-1.3); GLUCOSE 232 mg/dL (74-106); POTASSIUM 3.5 mmol/L (3.5-5.1); SGOT 29 U/L (15-37); SGPT 45 U/L (30-65); SODIUM 129 mmol/L (136-145); TOTAL BILIRUBIN 0.7 mg/dL (<0.1-1.0); TOTAL PROTEIN 5.4 g/dL (6.4-8.2)
[2019-02-19 12:05] VITALS: BP 94/67
[2019-02-19 17:30] VITALS: BP 103/71
--- NOTE | 2019-02-19 18:01 | NUR ---
ASSESSMENT CHARTED. PT ALERT AND ORIENTENT. RECEIVED PRN PAIN MED FOR TOOTHACHE WITH PARTIAL RELIEF. NO CONCERNS AT THIS TIME. WILL CONTINUE TO MONITOR.
[2019-02-19 19:26] VITALS: BP 100/50
[2019-02-20 00:05] VITALS: BP 116/91
--- NOTE | 2019-02-20 04:12 | NUR ---
RECEIVED REPORT FROM VENICE PAINTER.ASSUMED CARE AT 2200.PATIENT A/O X 4.UP INDEPENDENTLY TO THE BATHROOM.VOIDING ADEQUATE AMOUNT OF URINE.PATIENT STATES IV ACCESS IS HURTING AND INSISTED PREVIOUS RN TO REMOVE IV.THIS RN SPOKE TO PATIENT IF WE CAN STICK HIM AND REPLACE THE IV ACCESS AND REFUSED.MONITOR SHOWS AIFB WITH CONTROLLED RATE.POC CONTINUED.
[2019-02-20 04:13] LABS: CALCIUM 9.4 mg/dL (8.5-10.1); CREATININE 0.9 mg/dL (0.7-1.3); POTASSIUM 3.7 mmol/L (3.5-5.1)
[2019-02-20 05:27] VITALS: BP 128/79
[2019-02-20 07:39] VITALS: BP 130/79
[2019-02-20 11:24] VITALS: BP 114/61
[2019-02-20] MEDS ORDERED: DIGOXIN250 MCG PO (12:06)
[2019-02-20] MEDS ORDERED: CLARITIN10 M2 PO (12:06)
[2019-02-20] MEDS ORDERED: LIPITOR 20 MG T20 M1 PO (12:06)
[2019-02-20] MEDS ORDERED: LANTUS SUBQ (12:06)
[2019-02-20] MEDS ORDERED: MUCINEX600 MG PO (12:06)
[2019-02-20] MEDS ORDERED: HUMALOG100 UNIT/1 SUBQ (12:06)
[2019-02-20] MEDS ORDERED: FLONASE 0.05%50 MCG NASAL (12:06)
[2019-02-20] MEDS ORDERED: NICOTINE TRANSD21 M1 TRANSDERM (12:06)
[2019-02-20] MEDS ORDERED: ACETAMINOPHEN325 M1 PO (12:06)
[2019-02-20] MEDS ORDERED: MIRALAX17 GM PO (12:06)
[2019-02-20 13:41] VITALS: BP 114/61
--- NOTE | 2019-02-20 14:16 | NUR ---
ASSESSMENT CHARTED. PT ALERT AND ORIENTED. VSS. DENIED HAVING PAIN OR DISCOMFORT. REPORT FEELING MUCH BETTER TODAY. ORDERS GIVEN TO DISCHARGE PT TO HOME. DISCHARGE INSTRUCTIONS GIVEN TO PT. PT VERBERLISED UNDERSTANDING.
--- NOTE | 2019-02-20 15:02 | NUR ---
Pt dc'd to home today prior to being seen by cm. HH orders noted in his dc summary. Pt denied any dc needs during our prior visit and was up ad luisa in his room. He declined inpt therapy as well. Message left for the pt on his cell phone to contact cm should he be home bound and wish to have hh RN and therapy visits in the home.
== END 2019-02-20 14:20 | disposition home health service (06) | DRG 291 ==
LOC: 2N 13:19 → ENTRNSPT 02-20 13:58 → EDTRNSPTSTS 02-20 14:00 → 2N 02-20 14:20
PROVIDERS: Nurse Practitioner; ADMIT Internal Medicine
DX: I13.0 Hypertensive heart and chronic kidney disease with heart failure and stage 1 through stage 4 chronic kidney disease, or unspecified chronic kidney disease (principal); I50.23 Acute on chronic systolic (congestive) heart failure; I48.20 Chronic atrial fibrillation, unspecified; I48.21 Permanent atrial fibrillation; Z68.41 Body mass index [BMI] 40.0-44.9, adult; I42.9 Cardiomyopathy, unspecified; E78.5 Hyperlipidemia, unspecified; J44.9 Chronic obstructive pulmonary disease, unspecified; I48.91 Unspecified atrial fibrillation; E11.22 Type 2 diabetes mellitus with diabetic chronic kidney disease; I27.20 Pulmonary hypertension, unspecified; J32.9 Chronic sinusitis, unspecified; F17.210 Nicotine dependence, cigarettes, uncomplicated; E66.01 Morbid (severe) obesity due to excess calories; T63.301A Toxic effect of unspecified spider venom, accidental (unintentional), initial encounter; E11.65 Type 2 diabetes mellitus with hyperglycemia; G47.33 Obstructive sleep apnea (adult) (pediatric); Z83.3 Family history of diabetes mellitus; Z86.711 Personal history of pulmonary embolism; Z71.6 Tobacco abuse counseling; Y92.89 Other specified places as the place of occurrence of the external cause; Z91.14 Patient's other noncompliance with medication regimen
CPT/HCPCS: 10081

== ENCOUNTER 2019-03-10 11:16 | Inpatient (IN) | payer BC, OTHER ==
[~2019-03-10] VITALS: Ht 177.8 cm; Wt 142.9 kg
[~2019-03-10 11:16] MED LIST changes: +ACETAMINOPHEN325 M1 PO; +CLARITIN10 M2 PO; +DIGOXIN250 MCG PO; +FLONASE 0.05%50 MCG NASAL; +LIPITOR 20 MG T20 M1 PO; +MIRALAX17 GM PO; +MUCINEX600 MG PO; +NICOTINE TRANSD21 M1 TRANSDERM
[2019-03-10 11:45] LABS: BASOPHILS 0.9 % (0.0-2.0); EOSINOPHILS 0.5 % (0.0-3.0); HEMATOCRIT 45.6 % (42.0-52.0); HEMOGLOBIN 14.7 gm/dL (14.0-18.0); LYMPHOCYTES 13.6 % (24.0-44.0); MCHC 32.3 g/dL (28.0-37.0); MCV 80.4 fL (80.0-100.0); MONOCYTES 7.9 % (1.0-8.0); PLATELET COUNT 189 thou/uL (150-400); POLYS 77.1 % (36.0-66.0); RBC 5.67 mil/uL (4.50-6.00); RDW 15.2 % (10.5-14.5); WBC 15.6 thou/uL (4.0-11.0)
[2019-03-10 11:58] LABS: ANION GAP 9 mmol/L (7-16); BUN 12 mg/dL (7-18); CALCIUM 9.6 mg/dL (8.5-10.1); CHLORIDE 100 mmol/L (98-107); CO2 29 mmol/L (21-32); CREATININE 0.7 mg/dL (0.7-1.3); GLUCOSE 220 mg/dL (74-106); POTASSIUM 3.8 mmol/L (3.5-5.1); SODIUM 138 mmol/L (136-145)
[2019-03-10 12:09] LABS: ALBUMIN 3.5 g/dL (3.4-5.0); LIPASE 47 U/L (73-393); SGOT 20 U/L (15-37); SGPT 27 U/L (30-65); TOTAL BILIRUBIN 1.1 mg/dL (<0.1-1.0); TOTAL PROTEIN 6.8 g/dL (6.4-8.2); TROPONIN-I <0.06 ng/mL (<0.06)
--- NOTE | 2019-03-10 13:23 | NUR ---
PER DR BROWN. PT IS NOT GOING TO HAVE SURGERY TODAY. HE CAN HAVE CLEAR LIQUIDS UNTIL MIDNIGHT.
[2019-03-10] MEDS ORDERED: DOXYCYCLINE 10100 M2 PO (14:34)
[2019-03-10 15:35] VITALS: BP 117/58
--- NOTE | 2019-03-10 16:01 | NUR ---
ATTEMPTED TO CALL REPORT. WAS TOLD THAT THEY WERE UNSURE OF WHAT NURSE WOULD BE TAKING OVER PATIENT CARE. REQUESTED CHARGE NURSE NUMBER. SPOKE WITH CHARGE. CHARGE TO CALL BACK TO ACCEPT REPORT.
--- NOTE | 2019-03-10 17:10 | EKG ---
[place] [address] [facility] [employer] [address] ELECTROCARDIOGRAM REPORT Name: JOSEPALLYNDON Room #: 212-P ADM IN M.R.#: [id number] Admission: 03/10/19 Attend Phys: Ervin Gauthier MD Discharge: Date of : 66 Report #: [id number] THIS REPORT FOR: //name// [facility] ED Test Date: 2019-03-10 Test Time: 11:39:15 Pat Name: KEITH WESTON Department: Room: 212 Gender: M Audit Mgr: JOSEPHINE : 1970 Requested By: Ino Frias Order Number: [id number] MD: Johnny Hansen Measurements Intervals [place] Rate: 105 P: MT: QRS: -51 QRSD: 121 T: 126 QT: 327 QTc: 433 Interpretive Statements Atrial fibrillation Ventricular premature complex Left bundle branch block Baseline wander in lead(s) V2 Compared to ECG 02/17/2019 14:23:02 Ventricular premature complex(es) now present Electronically Signed On 03-10-2019 17:09:57 VESSEL OPERATOR by Johnny Hansen [email or web address] <ELECTRONICALLY SIGNED> By: Johnny Hansen MD, FAC 03/10/19 1709 1139 [id number] Johnny Hansen MD, [facility] /EPI
[2019-03-10 21:17] VITALS: BP 95/63
[2019-03-10] MEDS ORDERED: METFORMIN HCL500 M3 PO (21:33)
[2019-03-10] MEDS ORDERED: ANORO ELLIPTA1 EACH INH (21:35)
[2019-03-10] MEDS ORDERED: CHANTIX1 MG PO (21:36)
[2019-03-10] MEDS ORDERED: NORCO 5-325 TA1 EAC1 PO (21:38)
--- NOTE | 2019-03-11 04:25 | NUR ---
ASSUMED PT CARE AT 1900. A/OX4, VITAL SIGNS STABLE, ASSESSMENT CHARTED. PAIN ADEQAUTELY MANAGED WITH PAIN MEDICATION. CLEAR LIQUID DIET MAINTAINED. NO COMPLAINTS OF N/V. PT COMPLAINED OF OCCASIONAL SOB BUT REFUSES OXYGEN. ABLE TO TAKE DEEP BREATHS WHICH HELPS. RESTED WELL THROUGH THE NIGHT. NO ACUTE CHANGES. PROGRESSING TOWARD PLAN OF CARE. WILL CONTINUE TO MONITOR.
[2019-03-11 05:21] LABS: HEMATOCRIT 43.3 % (42.0-52.0); HEMOGLOBIN 13.7 gm/dL (14.0-18.0); MCHC 31.7 g/dL (28.0-37.0); MCV 81.8 fL (80.0-100.0); RBC 5.29 mil/uL (4.50-6.00); RDW 15.5 % (10.5-14.5); WBC 13.1 thou/uL (4.0-11.0)
[2019-03-11 05:31] LABS: CALCIUM 8.8 mg/dL (8.5-10.1); CREATININE 0.9 mg/dL (0.7-1.3)
[2019-03-11 08:00] VITALS: BP 102/71
--- NOTE | 2019-03-11 09:51 | NUR ---
RD consult received for pt with new dx diverticulitis. Just recently admitted. On clear liquids. Visit this am pt voiced in pain. Left education materials at bedside for low fiber diet until inflammation has resolved. Pt appreciative.
[2019-03-11 12:30] VITALS: BP 108/74
--- NOTE | 2019-03-11 13:23 | NUR ---
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 Adult children supportive. Patient cont to work and not home bound. He is independent with adls and drives. PCP Dr Clark. patient anticipates dc home no needs.
[2019-03-11 15:33] LABS: URINE BLOOD NEGATIVE (Negative); URINE CLARITY CLEAR; URINE COLOR YELLOW; URINE GLUCOSE-RANDOM* TRACE (Negative); URINE KETONES NEGATIVE (Negative); URINE LEUKOCYTES-REFLEX NEGATIVE (Negative); URINE NITRITE-REFLEX NEGATIVE (Negative); URINE PROTEIN (DIPSTICK) TRACE (Negative); URINE SPECIFIC GRAVITY >= 1.030 (1.005-1.035)
[2019-03-11 15:36] LABS: ICTOTEST (BILI CONFIRMATORY) Negative (Negative); URINE BILIRUBIN NEGATIVE (Negative)
[2019-03-11 16:00] VITALS: BP 103/73
--- NOTE | 2019-03-11 17:57 | NUR ---
ASSESSMENT CHARTED. PT ALERT AND ORIENTED. PRN PAIN MED GIVEN WITH PARTIAL RELIEF. NEW ORDERS NOTED. WILL CONTINUE TO MANAGE PAIN EFFECTIVELY.
[2019-03-11 20:03] VITALS: BP 110/62
[2019-03-12 02:08] LABS: GLYCOHEMOGLOBIN (HGB A1C) 11.9 % (4.8-5.6)
--- NOTE | 2019-03-12 04:32 | NUR ---
PT C/O ABDOMINAL PAIN NOT BEING CONTROLLED BY PAIN MEDS, FIELD [employer] FIRE CONTROL MAN CALLED AND NOTIFIED, VSS, HR REMAINS AFIB WITH CONTROLLED RATE, WILL CON'T TO MONITOR AND FOLLOW PPOC.
[2019-03-12 06:10] VITALS: BP 07/66
[2019-03-12 08:00] VITALS: BP 118/59
[2019-03-12 09:21] LABS: HEMATOCRIT 41.8 % (42.0-52.0); HEMOGLOBIN 13.5 gm/dL (14.0-18.0); MCH 26.2 pg (26.0-34.0); MCHC 32.3 g/dL (28.0-37.0); MCV 81.2 fL (80.0-100.0); RBC 5.15 mil/uL (4.50-6.00); RDW 15.2 % (10.5-14.5); WBC 11.1 thou/uL (4.0-11.0)
[2019-03-12 09:28] LABS: CALCIUM 9.3 mg/dL (8.5-10.1); CREATININE 0.8 mg/dL (0.7-1.3); MAGNESIUM 1.8 mg/dL (1.8-2.4)
[2019-03-12 12:00] VITALS: BP 117/68
[2019-03-12 16:34] VITALS: BP 114/72
--- NOTE | 2019-03-12 17:09 | NUR ---
PT ALERT AND ORIENTED. STILL COMPLAINS OF LEFT ABD PAIN. PRN PAIN MED GIVEN WITH PARTIAL RELIEF. HOME MEDS RESTARTED. DIET ADVANCED TO FULL LIQUID. NEW ORDERS NOTED. WILL CONTINUE TO MONITOR.
[2019-03-12 20:33] VITALS: BP 113/78
[2019-03-13 04:55] VITALS: BP 101/71
[2019-03-13 07:15] VITALS: BP 111/70
--- NOTE | 2019-03-13 07:19 | NUR ---
pt ambulating in [place] 3 times thru the shift, prn pain meds given as needed, vss, report given to next shift to con't ppoc.
[2019-03-13 11:40] VITALS: BP 99/52
[2019-03-13 12:57] LABS: HEMATOCRIT 40.7 % (42.0-52.0); HEMOGLOBIN 13.2 gm/dL (14.0-18.0); MCH 26.1 pg (26.0-34.0); MCHC 32.5 g/dL (28.0-37.0); MCV 80.4 fL (80.0-100.0); RBC 5.07 mil/uL (4.50-6.00); RDW 14.9 % (10.5-14.5); WBC 10.2 thou/uL (4.0-11.0)
[2019-03-13 13:15] LABS: CALCIUM 9.2 mg/dL (8.5-10.1); CREATININE 1.1 mg/dL (0.7-1.3); MAGNESIUM 1.9 mg/dL (1.8-2.4)
[2019-03-13 17:00] VITALS: BP 91/56
--- NOTE | 2019-03-13 19:54 | NUR ---
ASSESSMENT CHARTED. PT ALERT AND ORIENTED. PRN PAIN MED GIVEN WITH PARTIAL RELIEF. PT NOT HAPPY DURING SHIFT EXCHANGE FOR NOT GETTING HIS PAIN MED ON TIME. WANTED TO LEAVE AMA. REPORT PASSED ON TO THE NIGHT NURSE. WILL CONTINUE TO MONITOR.
[2019-03-13 20:00] VITALS: BP 88/59
[2019-03-14 01:09] VITALS: BP 69/44
[2019-03-14 01:13] VITALS: BP 94/65
[2019-03-14 03:51] VITALS: BP 101/68
[2019-03-14 04:58] LABS: HEMATOCRIT 40.2 % (42.0-52.0); HEMOGLOBIN 13.2 gm/dL (14.0-18.0); MCH 26.2 pg (26.0-34.0); MCHC 32.7 g/dL (28.0-37.0); RBC 5.03 mil/uL (4.50-6.00); RDW 14.9 % (10.5-14.5); WBC 11.2 thou/uL (4.0-11.0)
[2019-03-14 05:25] LABS: CREATININE 1.1 mg/dL (0.7-1.3); MAGNESIUM 1.7 mg/dL (1.8-2.4); POTASSIUM 4.1 mmol/L (3.5-5.1)
[2019-03-14 07:15] VITALS: BP 97/65
--- NOTE | 2019-03-14 16:40 | NUR ---
PT CARE ASSUMED APPROX 0700. ASSESSMENT CHARTED. DENIES SOA. VSS. REPORTS ADEQUATE PAIN MANAGEMENT OF ABD PAIN. UP WITH STEADY GAIT. TOLERATING POC. TOLERATING ADVANCE IN DIET. NEW PAIN MEDS HAVE NOT BEEN GIVEN TO ASSESS PAIN MANAGEMENT WITH THEM. WILL F/U WITH PAIN ASSESSMENT AFTER GIVING. DENIES QUESTIONS OR CONCERNS REGARDING POC. NO DISTRESS NOTED.
[2019-03-14 16:55] VITALS: BP 95/63
[2019-03-14 19:19] VITALS: BP 83/46; BP 83/6
[2019-03-15 05:01] LABS: CALCIUM 8.9 mg/dL (8.5-10.1); CREATININE 1.2 mg/dL (0.7-1.3); HEMATOCRIT 38.5 % (42.0-52.0); HEMOGLOBIN 12.4 gm/dL (14.0-18.0); MAGNESIUM 1.8 mg/dL (1.8-2.4); MCHC 32.3 g/dL (28.0-37.0); MCV 80.4 fL (80.0-100.0); POTASSIUM 3.8 mmol/L (3.5-5.1); RBC 4.79 mil/uL (4.50-6.00); RDW 15.2 % (10.5-14.5); WBC 9.3 thou/uL (4.0-11.0)
[2019-03-15 07:30] VITALS: BP 96/79
[2019-03-15] MEDS ORDERED: FLOMAX0.4 MG PO (11:17)
[2019-03-15] MEDS ORDERED: LEVAQUIN 750 M750 MG PO (11:18)
[2019-03-15] MEDS ORDERED: PERCOCET 7.5-31 EACH PO (11:18)
[2019-03-15] MEDS ORDERED: FLAGYL500 M1 PO (11:19)
[2019-03-15 11:50] VITALS: BP 96/79
--- NOTE | 2019-03-15 12:05 | NUR ---
PT CARE ASSUMED APPROX 0700. ASSESSMENT CHARTED. VSS. PT DENIES SOA. REPORTS ADEQUATE PAIN MANAGEMENT THIS SHIFT. PAIN MEDS WERE ADJUTED TO MANAGE PAIN OUTPT. UP WITH STEADY GAIT. APPROVED FOR DISCHARGE. PT REPORTED THAT HE HAD A LARGE BM AFTER NOT GOING FOR DAYS BUT KNEW THIS WAS PART OF DISCHARGE CRITERIA. THIS NURSE SUSPECTS THAT PT DID NOT HAVE A BM. DR ORELLANA. PT RECEIVED NEW DOSE OF PAIN MEDS (HIGHER DOSE THAN PREVIOUS) AND HAD TOLD NURSING THAT HE DROVE TO HOSPITAL YESTERDAY. WHEN NURSING EDUCATED AND STRONGLY RECOMMEDED THAT PT NOT DRIVE AFTER RECEIVING PAIN MEDS PT REPORTED THAT HE HAD A RIDE TO COME GET HIM. THIS NURSE BELIEVES THAT PT DOES NOT HAVE A RIDE TO TAKE HIM AND THAT HE INTENDS TO DRIVE HOME DESPITE THE EDUCATION, CAUTION AND RECOMMENDATION AGAINST DRIVING HOME. PT REPORTS THAT HE UNDERSTANDS ALL EDUCATION GIVEN INCLUDING THE PREVIOUSLY MENTIONED AND DISCHARGE EDUCATION. ALL BELONGINGS IN PT POSSESSION. IV OUT, TELE BOX OFF. NURSING STAFF TO ESCORT PT OUT TIMELY.
== END 2019-03-15 12:14 | disposition home or self-care (01) | DRG 391 ==
LOC: ER 11:16 → 2N 13:36 → EROBS 13:36 → 2N 16:14
PROVIDERS: Emergency Medicine; ADMIT Internal Medicine
DX: K57.20 Diverticulitis of large intestine with perforation and abscess without bleeding (principal); A41.9 Sepsis, unspecified organism; I42.9 Cardiomyopathy, unspecified; E11.9 Type 2 diabetes mellitus without complications; J44.9 Chronic obstructive pulmonary disease, unspecified; I27.20 Pulmonary hypertension, unspecified; I48.91 Unspecified atrial fibrillation; I11.0 Hypertensive heart disease with heart failure; F17.210 Nicotine dependence, cigarettes, uncomplicated; I50.9 Heart failure, unspecified; K52.9 Noninfective gastroenteritis and colitis, unspecified; Z86.711 Personal history of pulmonary embolism; Z83.3 Family history of diabetes mellitus
CPT/HCPCS: 10081; 10194